=== PATIENT | female | born 1975 | race Caucasian/White ===

== ENCOUNTER 2016-04-26 02:04 | Emergency (ER) | payer OTHER ==
[~2016-04-26] VITALS: Ht 165.1 cm; Wt 86.2 kg
[~2016-04-26 02:04] MED LIST: AMOXICILLIN500 MG PO; AUGMENTIN875TAB OR; CEPHALEXIN500 MG OR; CLINDAMYCIN300 M1 PO; DIFLUCAN150 MG OR; FIORICET PO; HYDROCHLOROT12.5 MG PO; LISINOPRIL5 MG PO; MECLIZINE25 MG OR; METOPROLOL25 MG PO; MUPIROCIN2 % EX; NEXIUM40 M1 PO; NO MEDS; PERCOCET 5/325M1 TAB OR; PERCOCET 5/325M1 TAB PO; PREVPAC PO; PRILOSEC OTC20 MG OR; ROCEPHIN 1 GM1 GM IM; SOLU-MEDROL125 MG IM; TORADOL IM; ULTRAM50 M1 PO; ULTRAM50 MG OR; ZOFRAN ODT4 MG PO; ZOFRAN ODT8 MG SL; [UNRECOGNIZED DRUG - OTHER] PO
[2016-04-26 02:48] VITALS: BP 146/90
== END 2016-04-26 03:21 | disposition left against medical advice (07) | DRG 951 ==
LOC: ED 02:04 → LWOBS 03:21
DX: Z91.19 Patient's noncompliance with other medical treatment and regimen (principal)

== ENCOUNTER 2018-03-30 12:10 | Emergency (ER) | payer OTHER ==
[~2018-03-30] VITALS: Ht 165.1 cm; Wt 75.0 kg
[2018-03-30 12:51] LABS: HEMATOCRIT 40.7 % (37.0-47.0); HEMOGLOBIN 13.9 g/dl (12.0-16.0); IMMATURE GRANULOCYTES 0.1 % (0.0-5.0); MEAN CELL VOLUME 83.6 fL CALC (80.0-100.0); MEAN CORPUSCULAR HGB 28.5 pG CALC (26.0-32.0); MEAN CORPUSCULAR HGB CONC 34.2 g/L CALC (32.0-36.0); NEUT# 4.25 thou/uL (2.00-7.15); RED BLOOD COUNT 4.87 mill/uL (4.20-5.60); RED CELL DISTRI WIDTH 12.3 % (11.5-15.5)
[2018-03-30 13:17] LABS: ALBUMIN 4.4 g/dL (3.2-5.0); ALKALINE PHOSPHATASE 83 u/l (38-126); ANION GAP 15 (6-22 (CALC)); BUN 10 mg/dL (7-17); BUN/CREATININE RATIO 20 (12-20 (CALC)); CARBON DIOXIDE 26 mmol/l (22-30); CHLORIDE 105 mmol/l (95-108); CREATININE 0.5 mg/dL (0.5-1.0); GFR > 60 ML/MIN (>=60 (CALC)); GFR FOR AFR.AMER. > 60 ML/MIN (>=60 (CALC)); POTASSIUM 3.8 mmol/l (3.5-5.1); SGOT/AST 36 u/l (14-36); SODIUM 141 mmol/l (137-146); TOTAL PROTEIN 7.4 g/dL (6.3-8.2)
[2018-03-30 13:42] VITALS: BP 136/73
[2018-03-30] MEDS ORDERED: ULTRAM50 M1 PO (13:50)
[2018-03-30] MEDS ORDERED: FLEXERIL PO (13:50)
== END 2018-03-30 14:13 | disposition home or self-care (01) | DRG 313 ==
LOC: ED 12:10
PROVIDERS: Emergency Medicine
DX: R07.89 Other chest pain (principal); I10 Essential (primary) hypertension

== ENCOUNTER 2018-04-02 10:58 | Emergency (ER) | payer OTHER ==
[~2018-04-02] VITALS: Ht 165.1 cm; Wt 81.0 kg
[~2018-04-02 10:58] MED LIST changes: +FLEXERIL PO
[2018-04-02 11:04] VITALS: BP 131/78
== END 2018-04-02 11:35 | disposition left against medical advice (07) | DRG 951 ==
LOC: ED 10:58 → LWOBS 11:34
DX: Z91.19 Patient's noncompliance with other medical treatment and regimen (principal)

== ENCOUNTER 2018-04-28 04:56 | Emergency (ER) | payer OTHER ==
[~2018-04-28] VITALS: Ht 165.1 cm; Wt 82.0 kg
[2018-04-28] MEDS ORDERED: TOPROL XL50 MG PO (05:29)
[2018-04-28] MEDS ORDERED: METFORMIN500 M2 PO (05:29)
[2018-04-28] MEDS ORDERED: AMLODIPINE5 MG PO (05:30)
[2018-04-28 06:07] LABS: ALBUMIN 4.6 g/dL (3.2-5.0); ALKALINE PHOSPHATASE 94 u/l (38-126); ANION GAP 16 (6-22 (CALC)); BILIRUBIN, TOTAL 0.8 mg/dL (0.0-1.4); BUN 11 mg/dL (7-17); BUN/CREATININE RATIO 20 (12-20 (CALC)); CARBON DIOXIDE 26 mmol/l (22-30); CHLORIDE 102 mmol/l (95-108); CREATININE 0.5 mg/dL (0.5-1.0); GFR > 60 ML/MIN (>=60 (CALC)); GFR FOR AFR.AMER. > 60 ML/MIN (>=60 (CALC)); POTASSIUM 3.9 mmol/l (3.5-5.1); SGOT/AST 35 u/l (14-36); SODIUM 140 mmol/l (137-146); TOTAL PROTEIN 7.5 g/dL (6.3-8.2)
[2018-04-28 06:12] LABS: HEMATOCRIT 42.4 % (37.0-47.0); HEMOGLOBIN 14.2 g/dl (12.0-16.0); IMMATURE GRANULOCYTES 0.1 % (0.0-5.0); MEAN CELL VOLUME 83.8 fL CALC (80.0-100.0); MEAN CORPUSCULAR HGB 28.1 pG CALC (26.0-32.0); MEAN CORPUSCULAR HGB CONC 33.5 g/L CALC (32.0-36.0); NEUT# 3.22 thou/uL (2.00-7.15); RED BLOOD COUNT 5.06 mill/uL (4.20-5.60); RED CELL DISTRI WIDTH 12.2 % (11.5-15.5)
[2018-04-28] MEDS ORDERED: FIORICET PO (06:23)
[2018-04-28] MEDS ORDERED: ZOFRAN ODT4 MG PO (06:23)
[2018-04-28 07:59] VITALS: BP 118/68
== END 2018-04-28 07:59 | disposition home or self-care (01) | DRG 103 ==
LOC: ED 04:56
PROVIDERS: Emergency Medicine
DX: G43.909 Migraine, unspecified, not intractable, without status migrainosus (principal); I10 Essential (primary) hypertension; R11.0 Nausea

== ENCOUNTER 2018-10-06 13:12 | Emergency (ER) | payer OTHER ==
[~2018-10-06] VITALS: Ht 165.1 cm; Wt 80.9 kg
[~2018-10-06 13:12] MED LIST changes: +AMLODIPINE5 MG PO; +METFORMIN500 M2 PO; +TOPROL XL50 MG PO
[2018-10-06 14:28] LABS: HEMATOCRIT 39.7 % (37.0-47.0); HEMOGLOBIN 13.3 g/dl (12.0-16.0); IMMATURE GRANULOCYTES 0.2 % (0.0-5.0); MEAN CELL VOLUME 83.9 fL CALC (80.0-100.0); MEAN CORPUSCULAR HGB 28.1 pG CALC (26.0-32.0); MEAN CORPUSCULAR HGB CONC 33.5 g/L CALC (32.0-36.0); NEUT# 5.27 thou/uL (2.00-7.15); RED BLOOD COUNT 4.73 mill/uL (4.20-5.60); RED CELL DISTRI WIDTH 12.3 % (11.5-15.5)
[2018-10-06 14:29] LABS: URINE BILIRUBIN - DIPSTICK NEGATIVE (NEGATIVE); URINE BLOOD DIPSTICK NEGATIVE (NEGATIVE); URINE COLOR YELLOW; URINE GLUCOSE - DIPSTICK NEGATIVE (NEGATIVE); URINE KETONE TRACE mg/dL (NEGATIVE); URINE LEUK ESTERASE NEGATIVE (NEGATIVE); URINE NITRITE - DIPSTICK NEGATIVE (Negative); URINE PROTEIN - DIPSTICK NEGATIVE (NEG-TRACE); URINE SPECIFIC GRAVITY >=1.030; URINE UROBILINOGEN - DIPSTICK 0.2 E.U./dL (0.2)
[2018-10-06 14:46] LABS: ALBUMIN 4.4 g/dL (3.2-5.0); ALKALINE PHOSPHATASE 95 u/l (38-126); ANION GAP 14 (6-22 (CALC)); BUN 8 mg/dL (7-17); BUN/CREATININE RATIO 17 (12-20 (CALC)); CARBON DIOXIDE 24 mmol/l (22-30); CHLORIDE 106 mmol/l (95-108); CREATININE 0.5 mg/dL (0.5-1.0); GFR > 60 ML/MIN (>=60 (CALC)); GFR FOR AFR.AMER. > 60 ML/MIN (>=60 (CALC)); LIPASE 83 u/l (23-300); POTASSIUM 4.2 mmol/l (3.5-5.1); SGOT/AST 44 u/l (14-36); SODIUM 139 mmol/l (137-146); TOTAL PROTEIN 7.6 g/dL (6.3-8.2)
[2018-10-06 14:47] LABS: BILIRUBIN, TOTAL 1.6 mg/dL (0.0-1.4)
[2018-10-06] MEDS ORDERED: MAGNESIUM296 ML/BTL PO (16:12)
[2018-10-06 16:28] VITALS: BP 140/71
== END 2018-10-06 16:50 | disposition home or self-care (01) | DRG 392 ==
LOC: ED 13:12
PROVIDERS: Family Medicine
DX: R10.11 Right upper quadrant pain (principal); K56.41 Fecal impaction; E11.9 Type 2 diabetes mellitus without complications; I10 Essential (primary) hypertension; Z79.84 Long term (current) use of oral hypoglycemic drugs

== ENCOUNTER 2018-10-24 04:47 | Observation (INO) | payer OTHER ==
[~2018-10-24] VITALS: Ht 165.1 cm; Wt 78.0 kg
[~2018-10-24 04:47] MED LIST changes: +AMLODIPINE BESYL5 MG PO; -AMLODIPINE5 MG PO; +MAGNESIUM296 ML/BTL PO
--- NOTE | 2018-10-24 04:48 | NUR ---
TO ROOM 9 WITH STEADY GAIT
[2018-10-24 05:42] LABS: HEMATOCRIT 39.1 % (37.0-47.0); HEMOGLOBIN 13.2 g/dl (12.0-16.0); IMMATURE GRANULOCYTES 0.2 % (0.0-5.0); MEAN CELL VOLUME 82.7 fL CALC (80.0-100.0); MEAN CORPUSCULAR HGB 27.9 pG CALC (26.0-32.0); MEAN CORPUSCULAR HGB CONC 33.8 g/L CALC (32.0-36.0); NEUT# 2.58 thou/uL (2.00-7.15); RED BLOOD COUNT 4.73 mill/uL (4.20-5.60); RED CELL DISTRI WIDTH 12.3 % (11.5-15.5)
[2018-10-24 05:44] LABS: URINE BILIRUBIN - DIPSTICK NEGATIVE (NEGATIVE); URINE BLOOD DIPSTICK NEGATIVE (NEGATIVE); URINE COLOR YELLOW; URINE GLUCOSE - DIPSTICK NEGATIVE (NEGATIVE); URINE KETONE TRACE mg/dL (NEGATIVE); URINE LEUK ESTERASE NEGATIVE (NEGATIVE); URINE NITRITE - DIPSTICK NEGATIVE (Negative); URINE PROTEIN - DIPSTICK TRACE mg/dL (NEG-TRACE); URINE SPECIFIC GRAVITY >=1.030; URINE UROBILINOGEN - DIPSTICK 0.2 E.U./dL (0.2)
--- NOTE | 2018-10-24 05:50 | NUR ---
PT REFUSED TORADOL FOR PAIN SAYING IT WILL CAUSE HER NAUSEA. INFORMED PT I ALSO HAD PHENERGAN FOR NAUSEA PT STATED SHE DIDN'T WANT THAT EITHER. ASKED PT WOULDN'T SHE LIKE SOMETHING FOR HER PAIN SHE SAID "NO IT'S NOT THAT BAD" ASKED IF FLUIDS WERE OK SHE AGREED. AFTER HANGING FLUIDS PT NOTICED A FEW BUBBLES PT GOT VERY UPSET SO I UNHOOKED LINE AND FLUSHED OUT BUBBLES BUT AFTER REATTACHING A FEW MORE SMALL BUBBLES APPEARED. TRIED TO EXPLAIN THAT IT HAPPENS AND THE ENTIRE LINE WOULD HAVE TO BE FILLED WITH AIR TO CAUSE ANY PROBLEM BUT OFFERED TO STOP THE INFUSING IF SHE WANTED. PT STATED TO LEAVE FLUIDS INFUSING. DR REICH INFORMED.
[2018-10-24 06:00] LABS: ALBUMIN 4.4 g/dL (3.2-5.0); ALKALINE PHOSPHATASE 84 u/l (38-126); AMYLASE 32 u/l (30-110); ANION GAP 14 (6-22 (CALC)); BILIRUBIN, TOTAL 1.2 mg/dL (0.0-1.4); BUN 8 mg/dL (7-17); BUN/CREATININE RATIO 15 (12-20 (CALC)); CARBON DIOXIDE 27 mmol/l (22-30); CHLORIDE 104 mmol/l (95-108); CREATININE 0.6 mg/dL (0.5-1.0); GFR > 60 ML/MIN (>=60 (CALC)); GFR FOR AFR.AMER. > 60 ML/MIN (>=60 (CALC)); LIPASE 111 u/l (23-300); POTASSIUM 3.7 mmol/l (3.5-5.1); SGOT/AST 37 u/l (14-36); SODIUM 141 mmol/l (137-146); TOTAL PROTEIN 7.2 g/dL (6.3-8.2)
--- NOTE | 2018-10-24 06:25 | NUR ---
PT'S DAUGHTER CALLED AND TALKED TO LINA COHEN STATING HER MOM CALLED HER SAYING SHE HAD AN AIR BUBBLE IN HER IV LINE. THE DAUGHTER ASKED IF SONEONE COULD GO CHECK ON IT. I TOLD VICKI I ALREADY DISCONNECTED LINE BECAUSE PT CALLED SAYING SHE LOST THE HEARING IN HER LEFT EAR FOR A MINUTE BUT IT CAME BACK AND PT IS GOING TO CT SOON. ASKED DR REICH TO GO IN AND TALK TO PT AND HE DID.
--- NOTE | 2018-10-24 06:42 | NUR ---
REPORT GIVEN TO LINA SCHWAB.
--- NOTE | 2018-10-24 09:00 | NUR ---
PT REMAINS IN NUCLEAR MEDICINE
--- NOTE | 2018-10-24 09:50 | NUR ---
PT REMAINS OUT OF ER DEPT IN NUCLEAR MEDICATIONS.
--- NOTE | 2018-10-24 10:09 | NUR ---
PT BACK FROM XRAY, ADVISED OF BUSY ER STATUS, PT LAYING ON STRETCHER, CALL LIGHT WITHIN REACH
--- NOTE | 2018-10-24 12:57 | NUR ---
PT ARRIVED TO MED/SURG ROOM 284 IN STABLE CONDITION VIA WHEELCHAIR ACCOMPANIED BY LINA HUERTA AND FAMILY MEMBER;PT AMBULATED TO STANDING SCALE AND BEDSIDE WITH A STEADY GAIT;WT AND VS OBTAINED BY DALILA SOLIS;PT A&O X3, ORIENTED TO ROOM AND CALL LIGHT SYSTEM;PT REPORTS RUQ RADIATING ABDOMINAL PAIN SINCE SEPTEMBER;PT DENIES ANY CURRENT PAIN OR DISCOMFORTS,PAIN SCALE AND REPORTING EDUCATED;ASSESSMENT COMPLETED;RESPIRATIONS EVEN AND UNLABORED ON RA,CLEAR LUNG SOUNDS;ABDOMEN SOFT ON PALPATION AND ACTIVE IN ALL 4 QUADRANTS,LAST BM 10/22/18;TENDERNESS TO RUQ NOTED ON PALPATION;STRONG PEDAL PULSES;SKIN INTACT;#20G TO RAC FLUSHED AND PATENT,SITE APPEARS HEALTHY AND D5 1/2 NS STARTED @ 100ML/HR PER ORDER;PT EDUCATED ON NPO DIET STATUS AFTER MIDNIGHT AND VERBALIZES UNDERSTANDING;PT DENIES ANY ADDITIONAL NEEDS AT THIS TIME AND IS ENCOURAGED TO CALL FOR ASSISTANCE IF NEEDED;CALL LIGHT IN REACH;WILL CONTINUE TO MONITOR
[2018-10-24 13:17] VITALS: BP 132/86
--- NOTE | 2018-10-24 14:10 | NUR ---
PT AND WRITTER DISCUSSED ALL RISKS/BENEFITS TO SURGERY. ALL QUESTIONS ANSWERED AT THIS TIME;INFORMED CONSENT OBTAINED FOR LAPROSCOPIC CHOLECYSTECTOMY.
[2018-10-24 15:04] VITALS: BP 130/78
--- NOTE | 2018-10-24 15:45 | NUR ---
PT RESTING IN SUPINE POSITION WITH FAMILY AT BEDSIDE;RESPIRATIONS EVEN AND UNLABORED ON RA;PT DENIES ANY CURRENT PAIN OR DISCOMFORTS;IV FLUIDS INFUSING TO RAC WITH EASE PER ORDER;PT DENIES ANY ADDITIONAL NEEDS AT THIS TIME;ASSESSMENT REMAINS UNCHANGED AT THIS TIME;ENCOURAGED TO CALL FOR ASSISTANCE IF NEEDED;CALL LIGHT IN REACH;WILL CONTINUE TO MONITOR
--- NOTE | 2018-10-24 19:30 | NUR ---
PATIENT SITTING UP IN CHAIR IN THE DARK. PATIENT IS AWAKE ALERT AND ORIENTEDX3. PATIENT APPEARS QUITE ANXIOUS IN REGUARDS TO SURGERY SCHEDULED FOR TOMORROW WITH DR. GARCIA. PATIENT WITH MULTIPLE QUESTIONS REGUARDING SURGERY AND WERE ANSWERED BEST POSSIBLE. PATIENT STATES THAT SHE DID HAVE MOD AMT OF FULL LIQUID DIET TONIGHT BUT FELT BLOATED AFTER-WAS MEDICATED WITH ZOFRAN ORDERED WITH SOME RELIEF. PATIENT WAS INSTRUCTED NPO AFTER MIDNIGHT FOR OR TOMMORROW. IV SITE TO RIGHT AC INTACT AND APPEARS HEALTHY WITH D51/2NS PATENT AND INFUSING AT 100CC/HR. PATIENT IS AWARE OF ANTIBIOTICS ORDERED-ZOSYN Q6H ORDERED. SAFETY PRECAUTIONS REINFORCED. CALL LIGHT IN REACH. WILL CONT TO MONITOR.
[2018-10-24 19:31] VITALS: BP 115/69
[2018-10-25] VITALS (10 sets, daily range): BP systolic 102–141; BP diastolic 50–76
--- NOTE | 2018-10-25 00:06 | NUR ---
PATIENT RESTING IN BED-AWAKE WATCHING TV AND ON HER PHONE. REINFORCED. NPO STATUS FOR NICHELLE INIGUEZ LATER TODAY. QUIN MARY SCHEDULED. SAFETY PRECAUTIONS REINFORCED. CALL LIGHT IN REACH. WILL CONT TO MONITOR.
--- NOTE | 2018-10-25 05:00 | NUR ---
PATIENT RESTING IN BED-ASKED THAT THIS NURSE LISTEN TO HER LUNGS SHE HAS DEVELOPED A COUGH DURING THE NIGHT. LUNGS WERE CLEAR, PATIENT REMAINS NPO FOR LAP GEETHA TODAY. PATIENT INSTRUCTED ON PRE-OP SHOWER USING ANTISEPTIC SPONGES. VERBALIZES UNDERSTANDING AND UP FOR SHOWER. WILL CONT TO MONITOR.
--- NOTE | 2018-10-25 07:10 | NUR ---
REPORT RECEIVED FROM LINA COLON;PT RESTING IN SEMI FOWLERS POSITION WITH MULTIPLE FAMILY MEMBERS AT BEDSIDE;INTRODUCED SELF TO PT AND POC DISCUSSED;RESPIRATIONS EVEN AND UNLABORED ON RA;PT DENIES ANY CURRENT PAIN OR NEEDS,DOES REPORT INCREASED SINUS DRAINAGE THIS MORNING;IV FLUIDS INFUSING TO RAC PER ORDER;PT REINFORCED ON NPO DIET STATUS AND VERBALIZES UNDERSTANDING;PT DENIES ANY ADDITIONAL NEEDS AT THIS TIME AND IS ENCOURAGED TO CALL FOR ASSISTANCE IF NEEDED;CALL LIGHT IN REACH;WILL CONTINUE TO MONITOR
--- NOTE | 2018-10-25 08:10 | NUR ---
PT RESTING IN SEMI FOWLERS POSITION,A&O X3;VS OBTAINED AND ASSESSMENT COMPLETED;PT REPORTS MINIMAL ABDOMINAL PAIN AND DENIES THE NEED FOR PAIN MEDICATION,PAIN SCALE AND REPORTING EDUCATED;RESPIRATIONS EVEN AND UNLABORED ON RA,CLEAR LUNG SOUNDS;ABDOMEN DISTENDED/SOFT ON PALPATION AND ACTIVE IN ALL 4 QUADRANTS;RUQ TENDER ON PALPATION;STRONG PEDAL PULSES;SKIN INTACT;#20G TO RAC INFUSING D5 1/2 NS @ 100ML/HR,SITE APPEARS HEALTHY;PT REMAINS NPO AT THIS TIME;PT DENIES ANY ADDITIONAL NEEDS AND IS ENCOURAGED TO CALL FOR ASSISTANCE IF NEEDED;CALL LIGHT IN REACH;WILL CONTINUE TO MONITOR
--- NOTE | 2018-10-25 11:10 | NUR ---
PT TRANSPORTED TO OR VIA STRETCHER IN STABLE CONDITION ACCOMPANIED BY LINA WOODWARD.
--- NOTE | 2018-10-25 15:15 | NUR ---
PT RETURNED TO MED/SURG ROOM 284 IN STABLE CONDITION VIA STRETCHER ACCOMPANIED BY TRACE,RN AND AMANDARN;PT TRANSPORTED SELF TO HOSPITAL BED;PT A&O X3, BUT VERY DROWSY AT THIS TIME;RESPIRATIONS SHALLOW ON O2 @ 2L VIA NC;PT REPORTS THAT ABDOMINAL PAIN IS SUBSIDING SINCE PAIN MEDICATION ADMINISTRATION IN THE OR GRAVEL ROOFER TO FLOOR;PT POST OP LAP GEETHA 10/25/18;X4 INCISIONAL AREAS WELL APPROX WITH DERMOBOND INTACT;IV FLUIDS INFUSING TO RAC WITH EASE;SCD'S PLACED ON PT AND VS STABLE;VS TO BE OBTAINED Q15 MINS PER PROTOCAL;PT DENIES ANY ADDITIONAL NEEDS AT THIS TIME AND IS ENCOURAGED TO CALL FOR ASSISTANCE IF NEEDED;FALL PRECAUTIONS IN PLACE WITH CALL LIGHT IN REACH;WILL CONTINUE TO MONITOR
--- NOTE | 2018-10-25 15:54 | NUR ---
FAMILY AT BEDSIDE
--- NOTE | 2018-10-25 18:15 | NUR ---
PT RESTING IN SEMI FOWLERS POSITION,DROWSY;RESPIRATIONS EVEN AND UNLABORED ON RA;PT REPORTS MINIMAL PAIN AT THIS TIME,PAIN SCALE AND REPORTING EDUCATED;IV FLUIDS INFUSING TO RAC WITH EASE,ABX HUNG AT THIS TIME;PT SIPPING A WATER;PT DENIES ANY ADDITIONAL NEEDS AND IS ENCOURAGED TO CALL FOR ASSISTANCE IF NEEDED;CALL LIGHT IN REACH;WILL CONTINUE TO MONITOR
--- NOTE | 2018-10-25 19:43 | NUR ---
PATIENT RESTING IN BED WITH EYES CLOSED-BEARLY SPEAKING WHEN SPOKEN TO. C/O NAUSEA AND MEDICATED WITH ZOFRAN 4MG IVP. AT BEDSIDE. PATIENT WITH IVF PATENT AND INFUSING VIA RIGHT AC SITE ORDERED. SITE IS HEALTHY AT THIS TIME. ABD IS SOFT WITH 4 SMALL INCISIONS INTACT WITH SURGICAL GLUE. NO DRAINAGE NOTED AT THIS TIME. BS HYPOACTIVE AT THIS TIME. TAKING SIPS OF PO FLUIDS ONLY. ENCOURAGED CDB EXERCISE EXERCISES AND USE OF IS Q1H WHILE AWAKE. WILL NEED MUCH ENCOURAGEMENT-PATIENT WITH SHALLOW RESP. O2 VIA NASAL CANNULA IN PLACE VIA NASAL CANNULA. SCD'S IN PLACE. SAFETY PRECAUTIONS REINFORCED. CALL LIGHT IN REACH. WILL CONT TO MONITOR.
--- NOTE | 2018-10-25 21:00 | NUR ---
PATIENT RESTING IN BED-STILL VERY DROWSY. VOIDING QS CLEAR YELLOW URINE IN BSC. IVF PATENT AND INFUSING VIA RIGHT AC IV SITE-SITE REMAINS HEALTHY AT THIS TIME. CALL LIGHT IN REACH, WILL CONT TO MONITOR.
--- NOTE | 2018-10-25 23:00 | NUR ---
PATIENT RESTING IN BED-WAKING UP-MUCH MORE ALERT. PATIENT OFFERED GATORADE AND TOLERATED WELL. PATIENT EXPRESSED CONCERNS REGUARDING [id number] AT THIS TIME. IVF D51/2NS PATENT AND INFUSING AT 100CC/HR VIA RIGHT AC SITE-REMAINS HEALTHY AT THIS TIME. 4 SMALL INCISIONS INTACT WITHOUT ANY DRAINAGE. ENCOURAGED USE OF IS Q1H WHILE AWAKE. ENCOURAGED TO CBD. DECLINES PAIN MEDS AT THIS TIME. VOIDING QS CLEAR YELLOW URINE. SAFETY PRECAUTIONS REINFORCED. CALL LIGHT IN REACH. WILL CONT TO MONITOR.
[2018-10-26 00:04] VITALS: BP 155/75
--- NOTE | 2018-10-26 03:24 | NUR ---
PATIENT SITTING ON SIDE OF THE BED-C/O "GAS PAINS UP IN SHOULDERS"-EXPLAINED TO PATIENT THAT THIS IS ASSOCIATED WITH POST-OP RECOVERY AND THE BEST WASY TO HELP RELEIVE THESES PAIN IS TO INCREASE AMULATION. PATIENT CONT TO VOID QS YELLOW URINE. CONT TO TAKE PO FLUIDS AND TOLERATING WELL. PATIENT CONT TO HAVE MULTIPLE CONCERNS ABOUT HER BS WHICH WAS CHECKED AND WAS 187. PATIENT IS DRINKING GATORADE. ENCOURAGED USE OF IS AND CDB EXERCISES. SAFETY PRECAUTIONS REINFORCED. CALL LIGHT IN REACH. WILL CONT TO MONITOR.
[2018-10-26 03:28] VITALS: BP 161/81
--- NOTE | 2018-10-26 04:37 | NUR ---
PATIENT CONT TO VOICE MULTIPLE MEDICAL CONCERNS-ATTEMPTED TO REASSURE PATIENT THAT HER VS ARE STABLE AND AFEBRILE. OFFERED PAIN MEDS BUT PATIENT DECLINES. ABD INCISIONS ARE INTACT WITH GLUE WITH NO DRAINAGE. IVF PATENT AND INFUSING AT 100CC/HR VIA RIGHT AC SITE. SITE REMAINS HEALTHY. TAKING PO FLUIDS AND TOLERATING WELL. OFFERED TO ADVANCE DIET BUT PATIENT STATES THAT SHE WANTS TO STAY ON LIQUIDS AT THIS TIME. SAFETY PRECAUTIONS REINFPORCED. CALL LIGHT IN REACH. WILL CONT TO MONITOR.
--- NOTE | 2018-10-26 06:37 | NUR ---
PATIENT RESTING IN BED-IVF D/C'ED AND IV SITE CONVERTED TO SALINE LOCK-#20 RAC-REMAINS HEALTHY. PATIENT MEDICATED FOR POST-OP PAIN WITH DILAUDID 0.5MG IVP ORDERED FOR PAIN. CALL LIGHT IN REACH. WILL CONT TO MONITOR.
--- NOTE | 2018-10-26 07:10 | NUR ---
REPORT RECEIVED FROM LINA COLON;PT RESTING IN SUPINE POSITION WITH MULTIPLE FAMILY MEMBERS AT BEDSIDE;INTRODUCED SELF TO PT AND POC DISCUSSED;RESPIRATIONS EVEN AND UNLABORED ON RA;PT REPORTS ABDOMINAL PAIN HAS DECREASED TO A 4/10 ON THE PAIN SCALE AT THIS TIME;PT IS A POST OP LAP GEETHA 10/25/18;PT DENIES ANY ADDITIONAL NEEDS AT THIS TIME AND IS ENCOURAGED TO CALL FOR ASSISTANCE IF NEEDED;FALL PRECAUTIONS IN PLACE WITH BED IN THE LOWEST POSITION AND CALL LIGHT IN REACH;WILL CONTINUE TO MONITOR
--- NOTE | 2018-10-26 08:10 | NUR ---
PT RESTING IN SEMI FOWLERS POSITION,A&O X3, WITH MULTIPLE FAMILY MEMBERS AT BEDSIDE;VS OBTAINED AND ASSESSMENT COMPLETED;PT DENIES ANY CURRENT PAIN OR DISCOMFORTS,PAIN SCALE AND REPORTING EDUCATED;PT IS POST OP DAY #1 LAP GEETHA;X4 INCISIONAL AREAS NOTED TO BE WELL APPROX WITH DEMOBOND INTACT TO ABDOMEN;RESPIRATIONS EVEN AND UNLABORED ON RA,CLEAR LUNG SOUNDS;ABDOMEN SOFT ON PALPATION AND HYPOACTIVE IN ALL 4 QUADRANTS;STRONG PEDAL PULSES;SCD'S IN PLACE;#20G TO RAC FLUSHED AND PATENT,SITE APPEARS HEALTHY;PT DENIES ANY ADDITIONAL NEEDS THIS TIME BUT REQUESTS TO TALK WITH MD PRIOR TO DISCHARGE HOME;PT ENCOURAGED TO CALL FOR ASSISTANCE IF NEEDED;CALL LIGHT IN REACH;WILL CONTINUE TO MONITOR
[2018-10-26 08:12] VITALS: BP 121/59
--- NOTE | 2018-10-26 08:35 | NUR ---
AT BEDSIDE DISCUSSING POC.
--- NOTE | 2018-10-26 10:10 | NUR ---
ALL DICHARGE INSTRUCTIONS PROVIDED AT THIS TIME AND QUESTIONS ANSWEREED.APPT MADE FOR F/U WITH ON Wednesday11/04/18 @ 1015AM;PT PROVIDED [facility] RX FOR PERCOCET 5/325MG;IV SITE REMOVED WITH CATHETER INTACT;PT DENIES ANY ADDITIONAL NEEDS AT THIS TIME;WHEELCHAIR TO BE PROVIDED FOR D/C HOME;SPOUSE TO TRANSPORT HOME.
--- NOTE | 2018-10-26 10:15 | NUR ---
Discharge instructions given. Patient verbalizes understanding of same. Discharged in stable condition via Wheelchair to Home with spouse. All belongings sent with pt. Pt transported to [facility] for discharge home via wheelchair om stable condition accompanied by spouse and volunteer.
== END 2018-10-26 10:16 | disposition home or self-care (01) | DRG 419 ==
LOC: ED 04:47 → ED-I 11:01 → ED 11:19 → MS2 11:20
PROVIDERS: Family Medicine; ADMIT Surgery; ATTEND Surgery
PROC: 0FT44ZZ Resection of Gallbladder, Percutaneous Endoscopic Approach (ICD-10-PCS; principal; 2018-10-25)
DX: K81.1 Chronic cholecystitis (principal); I10 Essential (primary) hypertension; E11.9 Type 2 diabetes mellitus without complications
CPT/HCPCS: A9537; G0378; J0131; J2710; J2805

== ENCOUNTER 2018-10-28 16:38 | Emergency (ER) | payer OTHER ==
[~2018-10-28] VITALS: Ht 165.1 cm; Wt 84.0 kg
[2018-10-28 17:31] LABS: HEMATOCRIT 37.9 % (37.0-47.0); IMMATURE GRANULOCYTES 0.3 % (0.0-5.0); MEAN CORPUSCULAR HGB 28.1 pG CALC (26.0-32.0); MEAN CORPUSCULAR HGB CONC 34.3 g/L CALC (32.0-36.0); NEUT# 3.79 thou/uL (2.00-7.15); RED BLOOD COUNT 4.62 mill/uL (4.20-5.60); RED CELL DISTRI WIDTH 12.1 % (11.5-15.5)
[2018-10-28 17:48] LABS: ALBUMIN 3.9 g/dL (3.2-5.0); ALKALINE PHOSPHATASE 76 u/l (38-126); ANION GAP 13 (6-22 (CALC)); BILIRUBIN, TOTAL 0.8 mg/dL (0.0-1.4); BUN 8 mg/dL (7-17); BUN/CREATININE RATIO 15 (12-20 (CALC)); CARBON DIOXIDE 29 mmol/l (22-30); CHLORIDE 103 mmol/l (95-108); CREATININE 0.5 mg/dL (0.5-1.0); GFR > 60 ML/MIN (>=60 (CALC)); GFR FOR AFR.AMER. > 60 ML/MIN (>=60 (CALC)); POTASSIUM 3.5 mmol/l (3.5-5.1); SGOT/AST 36 u/l (14-36); SODIUM 141 mmol/l (137-146); TOTAL PROTEIN 6.6 g/dL (6.3-8.2)
[2018-10-28] MEDS ORDERED: METFORMIN500 M2 PO (17:55)
[2018-10-28] MEDS ORDERED: PERCOCET 5/325M1 TAB PO (17:56)
[2018-10-28 18:15] VITALS: BP 149/97
== END 2018-10-28 18:31 | disposition home or self-care (01) | DRG 948 ==
LOC: ED 16:38
DX: G89.18 Other acute postprocedural pain (principal); E11.9 Type 2 diabetes mellitus without complications; I10 Essential (primary) hypertension; Z90.49 Acquired absence of other specified parts of digestive tract

== ENCOUNTER 2018-10-30 00:43 | Emergency (ER) | payer OTHER ==
[~2018-10-30] VITALS: Ht 165.1 cm; Wt 77.0 kg
[2018-10-30 01:34] LABS: HEMATOCRIT 39.1 % (37.0-47.0); HEMOGLOBIN 13.1 g/dl (12.0-16.0); IMMATURE GRANULOCYTES 0.1 % (0.0-5.0); MEAN CELL VOLUME 81.8 fL CALC (80.0-100.0); MEAN CORPUSCULAR HGB 27.4 pG CALC (26.0-32.0); MEAN CORPUSCULAR HGB CONC 33.5 g/L CALC (32.0-36.0); NEUT# 4.13 thou/uL (2.00-7.15); RED BLOOD COUNT 4.78 mill/uL (4.20-5.60); RED CELL DISTRI WIDTH 12.2 % (11.5-15.5)
[2018-10-30 01:47] LABS: ALBUMIN 4.5 g/dL (3.2-5.0); ALKALINE PHOSPHATASE 92 u/l (38-126); ANION GAP 16 (6-22 (CALC)); BILIRUBIN, TOTAL 0.7 mg/dL (0.0-1.4); BUN 7 mg/dL (7-17); BUN/CREATININE RATIO 15 (12-20 (CALC)); CARBON DIOXIDE 27 mmol/l (22-30); CHLORIDE 101 mmol/l (95-108); CREATININE 0.5 mg/dL (0.5-1.0); GFR > 60 ML/MIN (>=60 (CALC)); GFR FOR AFR.AMER. > 60 ML/MIN (>=60 (CALC)); POTASSIUM 3.4 mmol/l (3.5-5.1); SGOT/AST 29 u/l (14-36); SODIUM 140 mmol/l (137-146); TOTAL PROTEIN 7.4 g/dL (6.3-8.2)
[2018-10-30 01:59] LABS: MYOGLOBIN 18 ng/mL (0 - 62)
[2018-10-30 05:48] VITALS: BP 137/78
== END 2018-10-30 05:48 | disposition home or self-care (01) | DRG 313 ==
LOC: ED 00:43
PROVIDERS: Emergency Medicine
DX: R07.89 Other chest pain (principal); E11.9 Type 2 diabetes mellitus without complications; I10 Essential (primary) hypertension
CPT/HCPCS: Q9967

== ENCOUNTER 2019-01-10 08:17 | Day surgery (SDC) | payer OTHER ==
[~2019-01-10] VITALS: Ht 165.1 cm; Wt 77.1 kg
[~2019-01-10 08:17] MED LIST changes: +FIBER FORMULA PO; +MAALOX ADVANCED PO; +MULTI VIT PO
[2019-01-10 11:18] VITALS: BP 118/62
== END 2019-01-10 12:00 | disposition home or self-care (01) | DRG 379 ==
LOC: ENDO 08:17 → ORM 10:30 → ENDO 12:00
PROVIDERS: ATTEND Surgery
PROC: 0DBN8ZX Excision of Sigmoid Colon, Via Natural or Artificial Opening Endoscopic, Diagnostic (ICD-10-PCS; principal; 2019-01-10)
DX: K57.31 Diverticulosis of large intestine without perforation or abscess with bleeding (principal); K64.8 Other hemorrhoids; K63.5 Polyp of colon

== ENCOUNTER 2019-12-20 02:10 | Emergency (ER) | payer OTHER ==
[~2019-12-20] VITALS: Ht 165.1 cm; Wt 79.0 kg
[2019-12-20 03:02] LABS: HEMATOCRIT 44.5 % (37.0-47.0); HEMOGLOBIN 14.7 g/dl (12.0-16.0); IMMATURE GRANULOCYTES 0.1 % (0.0-5.0); MEAN CELL VOLUME 84.4 fL CALC (80.0-100.0); MEAN CORPUSCULAR HGB 27.9 pG CALC (26.0-32.0); NEUT# 4.21 thou/uL (2.00-7.15); RED BLOOD COUNT 5.27 mill/uL (4.20-5.60)
[2019-12-20 03:03] LABS: URINE BILIRUBIN - DIPSTICK NEGATIVE (NEGATIVE); URINE BLOOD DIPSTICK NEGATIVE (NEGATIVE); URINE COLOR YELLOW; URINE GLUCOSE - DIPSTICK NEGATIVE (NEGATIVE); URINE KETONE NEGATIVE (NEGATIVE); URINE LEUK ESTERASE NEGATIVE (NEGATIVE); URINE NITRITE - DIPSTICK NEGATIVE (Negative); URINE PROTEIN - DIPSTICK 100 mg/dL (NEG-TRACE); URINE SPECIFIC GRAVITY 1.025; URINE UROBILINOGEN - DIPSTICK 0.2 E.U./dL (0.2)
[2019-12-20 03:22] LABS: ALBUMIN 4.7 g/dL (3.2-5.0); ALKALINE PHOSPHATASE 99 u/l (38-126); AMYLASE 47 u/l (30-110); ANION GAP 15 (6-22 (CALC)); BILIRUBIN, TOTAL 0.8 mg/dL (0.0-1.4); BUN 8 mg/dL (7-17); BUN/CREATININE RATIO 14 (12-20 (CALC)); CARBON DIOXIDE 26 mmol/l (22-30); CHLORIDE 105 mmol/l (95-108); CREATININE 0.5 mg/dL (0.5-1.0); GFR > 60 ML/MIN (>=60 (CALC)); GFR FOR AFR.AMER. > 60 ML/MIN (>=60 (CALC)); LIPASE 222 u/l (23-300); POTASSIUM 3.8 mmol/l (3.5-5.1); SGOT/AST 44 u/l (14-36); SODIUM 142 mmol/l (137-146)
[2019-12-20 03:25] LABS: URINE BACTERIA MANY hpf; URINE RBC 0-2 RBC/hpf (0-5); URINE SQUAMOUS EPITHELIAL CELL FEW EPI/hpf (0-FEW)
[2019-12-20] MEDS ORDERED: METOPROL TAR25 MG PO (03:30)
[2019-12-20] MEDS ORDERED: AMLODIPINE BESYL5 MG PO (03:32)
[2019-12-20 03:34] LABS: MYOGLOBIN 17 ng/mL (0 - 62)
[2019-12-20] MEDS ORDERED: PREVACID30 M3 PO (03:51)
[2019-12-20 04:03] VITALS: BP 129/66
[2019-12-25] MEDS ORDERED: METFORMIN500 M2 PO (09:29)
[2019-12-25] MEDS ORDERED: OMEPRAZOLE20 MG PO (09:29)
[2019-12-25] MEDS ORDERED: B COMPLE2 PO (09:30)
== END 2019-12-20 04:11 | disposition left against medical advice (07) | DRG 392 ==
LOC: ED 02:10
PROVIDERS: Emergency Medicine
DX: R10.13 Epigastric pain (principal); E11.9 Type 2 diabetes mellitus without complications; I10 Essential (primary) hypertension; Z91.19 Patient's noncompliance with other medical treatment and regimen
CPT/HCPCS: S0164

== ENCOUNTER 2021-12-11 13:08 | Emergency (ER) | payer OTHER ==
[2021-12-11] VITALS (12 sets, daily range): BP systolic 125–156; BP diastolic 75–102
[~2021-12-11] VITALS: Ht 165.1 cm; Wt 80.0 kg
[~2021-12-11 13:08] MED LIST changes: +B COMPLE2 PO; +METOPROL TAR25 MG PO; +OMEPRAZOLE20 MG PO; +PREVACID30 M3 PO
[2021-12-11 14:29] LABS: HEMATOCRIT 41.5 % (37.0-47.0); HEMOGLOBIN 14.4 g/dl (12.0-16.0); IMMATURE GRANULOCYTES 0.3 % (0.0-5.0); MEAN CORPUSCULAR HGB 28.8 pG CALC (26.0-32.0); MEAN CORPUSCULAR HGB CONC 34.7 g/dL CAL (32.0-36.0); NEUT# 5.63 thou/uL (2.00-7.15)
[2021-12-11 14:32] LABS: ALBUMIN 4.9 g/dL (3.2-5.0); ALKALINE PHOSPHATASE 93 u/l (38-126); ANION GAP 12 (6-22 (CALC)); BUN 11 mg/dL (7-17); BUN/CREATININE RATIO 19 (12-20 (CALC)); CARBON DIOXIDE 26 mmol/l (22-30); CHLORIDE 103 mmol/l (95-108); CREATININE 0.6 mg/dL (0.5-1.0); GFR FOR AFR.AMER. > 60 ML/MIN (>=60 (CALC)); GFR OTHER RACES > 60 ML/MIN (>=60 (CALC)); LIPASE 128 u/l (23-300); POTASSIUM 3.9 mmol/l (3.5-5.1); SGOT/AST 33 u/l (14-36); SODIUM 136 mmol/l (137-146); TOTAL PROTEIN 8.1 g/dL (6.3-8.2)
[2021-12-11 17:22] LABS: URINE BILIRUBIN - DIPSTICK NEGATIVE (NEGATIVE); URINE BLOOD DIPSTICK NEGATIVE (NEGATIVE); URINE COLOR YELLOW; URINE GLUCOSE - DIPSTICK NEGATIVE (NEGATIVE); URINE KETONE NEGATIVE (NEGATIVE); URINE LEUK ESTERASE NEGATIVE (NEGATIVE); URINE PROTEIN - DIPSTICK NEGATIVE (NEG-TRACE); URINE UROBILINOGEN - DIPSTICK 0.2 E.U./dL (0.2)
[2021-12-11 17:24] LABS: URINE NITRITE - DIPSTICK NEGATIVE (Negative)
[2021-12-11] MEDS ORDERED: DICYCLOMINE HYD10 MG PO ×2 (18:05→18:34)
[2021-12-11] MEDS ORDERED: DEXAMETHASONE2 MG PO ×2 (18:33→18:34)
== END 2021-12-11 18:44 | disposition home or self-care (01) | DRG 392 ==
LOC: ED 13:08
PROVIDERS: Nurse Practitioner
DX: R10.11 Right upper quadrant pain (principal); E11.9 Type 2 diabetes mellitus without complications; I10 Essential (primary) hypertension
CPT/HCPCS: Q9967

== ENCOUNTER 2023-10-08 18:05 | Emergency (ER) | payer OTHER ==
[~2023-10-08] VITALS: Ht 165.1 cm; Wt 77.0 kg
[~2023-10-08 18:05] MED LIST changes: +DEXAMETHASONE2 MG PO; +DICYCLOMINE HYD10 MG PO; +JANUVIA100 MG PO; +LOPRESSOR25 MG PO; +TOPROL XL25 MG PO
[2023-10-08 18:16] VITALS: BP 149/93
[2023-10-08 18:30] VITALS: BP 123/72
[2023-10-08] MEDS ORDERED: KETOROLAC TROMETHAMINE 30 MG/ML SDV IM ONE (18:40)
[2023-10-08 18:45] VITALS: BP 130/81
[2023-10-08] MEDS ORDERED: DEXAMETHASONE SOD. PHOSPHATE 10 MG/ML VIAL IM ONE (18:45)
[2023-10-08] MEDS ORDERED: LORTAB 5/3255 MG PO (19:30)
[2023-10-08] MEDS ORDERED: HYDROcodone 5 MG/Acetaminophen 325 MG/COMBO PO ONE (19:30)
[2023-10-08] MEDS ORDERED: MEDDOSEPAK PO (19:30)
[2023-10-08 19:59] VITALS: BP 130/81
== END 2023-10-08 19:55 | disposition home or self-care (01) | DRG 552 ==
LOC: ED 18:05
DX: M54.31 Sciatica, right side (principal); I10 Essential (primary) hypertension; E11.9 Type 2 diabetes mellitus without complications